=== PATIENT | male | born 1975 | race Caucasian/White ===

== ENCOUNTER 2019-02-23 11:14 | Emergency (ER) | payer OTHER ==
[~2019-02-23] VITALS: Ht 175.3 cm; Wt 77.3 kg
[2019-02-23 11:18] VITALS: BP 134/82
--- NOTE | 2019-02-23 11:55 | NUR ---
POISON CONTROL CONTACTED AND RECEIVED FOLLOWING RECOMMEDATIONS: IRRIGATE/FLUSH EYE FOR APPROX 10 MIN FLORENSCENCE STAIN TEST TO EVAL CORNEAL DAMAGE OPTHAMOLOGIST REFERAL IF INDICATED. RECOMMENDATIONS REPORTED TO PROVIDER BEATRICE FRANCO
[2019-02-23] MEDS ORDERED: proparacaine 0.5% ophthalmic drops 15ml EACHEYE ONE ×2 (12:05→12:15)
--- NOTE | 2019-02-23 12:15 | NUR ---
PTS EYE HAS BEEN IRRIGATED/FLUSHED OUT WITH 1000ML NS.
[2019-02-23] MEDS ORDERED: TOBR5DRO2 LEFTEYE (12:38)
== END 2019-02-23 12:56 | disposition home or self-care (01) ==
LOC: ER 11:15
DX: H10.89 Other conjunctivitis (principal); Z79.899 Other long term (current) drug therapy
CPT/HCPCS: 99283